=== PATIENT | female | born 1950 | race African-American/Black ===

== ENCOUNTER 2017-07-28 21:20 | Emergency (ER) | payer SELFPAY ==
[2017-07-28] MEDS ORDERED: Bacitracin Zinc 1 Packet ONE ×2 (21:45→21:49)
[2017-07-28] MEDS ORDERED: Ketorolac Tromethamine 30 MG/ML VIAL ONE (21:49)
== END 2017-07-28 22:15 | disposition home or self-care (01) ==
LOC: ERS 21:20
DX: S70.361A Insect bite (nonvenomous), right thigh, initial encounter (principal); S70.261A Insect bite (nonvenomous), right hip, initial encounter; M54.41 Lumbago with sciatica, right side; I10 Essential (primary) hypertension; F32.9 Major depressive disorder, single episode, unspecified; W57.XXXA Bitten or stung by nonvenomous insect and other nonvenomous arthropods, initial encounter
CPT/HCPCS: 96372; J1885

== ENCOUNTER 2018-06-20 21:06 | Emergency (ER) | payer MEDICARE, SELFPAY ==
[~2018-06-20 21:06] MED LIST: ISOVUE-370 76%-LOCM 1 ML ONE
[2018-06-20 21:33] LABS: #Lymphocytes 1.5 thou/uL (1.20-3.40); #Monocytes 0.3 thou/uL (0.11-0.59); #Neutrophils 1.6 thou/uL (1.40-6.50); %Basophils 0.3 % (0.0-1.0); %Eosinophils 1.2 % (0.0-10.0); %Lymphocytes 43.5 % (21.0-51.0); Hemoglobin 12.2 g/dL (12.0-16.0); Mean Corpuscular Hemoglobin 28.8 pg (27.0-31.0); Mean Corpuscular Volume 89.8 fL (78.0-98.0); Mean Platelet Volume 7.7 fL (7.4-10.4); Platelet Count 232 thou/uL (130-400); RBC Distribution Width 11.5 % (11.5-14.5); Red Blood Cell (RBC) Count 4.26 mill/uL (4.20-5.40); White Blood Cell (WBC) Count 3.4 thou/uL (4.8-10.8)
[2018-06-20] MEDS ORDERED: Ondansetron PF 4 MG/2 ML Vial ONE (21:33)
[2018-06-20 21:54] LABS: ALT (SGPT) 34 U/L (8-55); AST (SGOT) 80 U/L (5-34); Albumin 3.8 g/dL (3.4-4.8); Alkaline Phosphatase 77 U/L (40-150); Anion Gap 12 mmol/L (10-20); BUN (Urea Nitrogen) 9 mg/dL (9.8-20.1); Bilirubin, Total 0.4 mg/dL (0.2-1.2); Calc. Creatinine Clearance 0 mL/min (70-130); Calcium 8.8 mg/dL (7.8-10.44); Carbon Dioxide 23 mmol/L (23-31); Chloride 104 mmol/L (98-107); Estimated GFR-MDRD 82; Globulin 3.4 g/dL (2.4-3.5); Glucose 107 mg/dL (80-115); Potassium 3.1 mmol/L (3.5-5.1); Protein, Total 7.2 g/dL (6.0-8.3); Sodium 136 mmol/L (136-145)
--- NOTE | 2018-06-20 21:58 | RAD ---
Frontal radiograph chest: 06/20/2018 comparison 10/19/2014 HISTORY: Trauma, pain FINDINGS: There is mild widening of the superior mediastinum with a slightly ill-defined nature of th e aortic knob. This may be secondary to supine imaging. Follow-up PA and lateral imaging of the chest is advised for further assessment. No lobar consolidation or alveolar edema. Supine imaging miles its assessment for pneumothorax or pleural fluid. IMPRESSION: Mild widening of superior mediastinum with ill-defined nature of the aortic knob for whic h follow-up PA and lateral imaging advised.
[2018-06-20] MEDS ORDERED: Fentanyl 100 MCG/2 ML VIAL ONE (21:59)
--- NOTE | 2018-06-20 22:01 | CT ---
Head CT without contrast 06/20/2018: COMPARISON: 07/16/2016 HISTORY: Injury, trauma, pain TECHNIQUE: Axial CT imaging at 5 mm intervals from vertex through skull base without contrast FINDINGS: The sphenoid sinus on the left is opacified and demonstrates wall thickening, suggesting ch ronic sphenoid sinusitis, similar when compared to the prior exam. The temporal horn of the left lateral ventricle is prominent, a stable finding. No intracranial hemorrhage, midline shift, mass eff ect, or acute osseous abnormality. IMPRESSION: Chronic findings as detailed above, no acute findings seen. Results called to Dr. Fermin at 10:00 PM 06/20/2018
--- NOTE | 2018-06-20 22:08 | CT ---
CT cervical spine: 06/20/2018 COMPARISON: None HISTORY: Injury, trauma, pain TECHNIQUE: Axial CT imaging at 2.5 mm intervals from skull base through lung apices with coronal and sagittal reformatted imaging FINDINGS: Minimal subpleural emphysematous change noted within bilateral lung apices versus miniscule bilateral pneumothoraces. The C1 ring is intact. The occipital condyles, dens, and C1 to articulation appear grossly unremarkable. There is multilevel degenerative change within the cervical spine with multilevel bilateral facet hyp ertrophy as well as multilevel disc space narrowing and degenerative endplate change, most prominent at C7-T1. No discrete acute cervical spine fracture or dislocation noted. There is a first rib fracture noted on the left. IMPRESSION: Probable tiny apical pneumothoraces. First rib fracture on the left. Prominent cervical s pine degenerative change with no acute cervical spine fracture. Results called to Dr. Handley at 10:00 PM 06/20/2018.
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
--- NOTE | 2018-06-20 22:21 | RAD ---
5 views left wrist: 06/20/2018 COMPARISON: None HISTORY: Trauma, pain FINDINGS: There is an obliquely oriented impacted fracture of the distal left radius. There is a comm inuted mildly displaced ulnar styloid fracture. Obliquely oriented radial fracture demonstrates mild comminution with mild impaction, mild volar displacement, and extension into the distal radiouln ar joint. Postreduction imaging advised. IMPRESSION: Fracture deformities of the distal left radius and ulna as detailed above.
[2018-06-20] MEDS ORDERED: Esmolol 2,500 MG/250 ML 250 ML ONE (22:48)
== END 2018-06-20 23:26 | disposition short-term general hospital (02) ==
LOC: ERS 21:06
DX: S25.01XA Minor laceration of thoracic aorta, initial encounter (principal); I10 Essential (primary) hypertension; F32.9 Major depressive disorder, single episode, unspecified; V49.9XXA Car occupant (driver) (passenger) injured in unspecified traffic accident, initial encounter
CPT/HCPCS: 70450; 71045; 71260; 72125; 74177; 80053; 85025; 93005; 96374; 96375; 96376; G0390; J2405; J3010; Q9966

== ENCOUNTER 2018-07-05 17:38 | Observation (INO) | payer MEDICARE, OTHER ==
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
[2018-07-05 18:38] LABS: #Eosinphils 0.1 thou/uL (0.0-0.7); #Lymphocytes 1.3 thou/uL (1.20-3.40); #Monocytes 0.6 thou/uL (0.11-0.59); #Neutrophils 3.1 thou/uL (1.40-6.50); %Basophils 0.3 % (0.0-1.0); %Eosinophils 1.3 % (0.0-10.0); %Lymphocytes 25.4 % (21.0-51.0); %Monocytes 12.6 % (0.0-10.0); %Neutrophils 60.4 % (42.0-75.0); Hemoglobin 10.5 g/dL (12.0-16.0); Mean Corpuscular HGB CONC 31.9 g/dL (32.0-36.0); Mean Corpuscular Hemoglobin 29.4 pg (27.0-31.0); Mean Corpuscular Volume 92.1 fL (78.0-98.0); Mean Platelet Volume 6.7 fL (7.4-10.4); Platelet Count 428 thou/uL (130-400); Red Blood Cell (RBC) Count 3.57 mill/uL (4.20-5.40); White Blood Cell (WBC) Count 5.1 thou/uL (4.8-10.8)
[2018-07-05 19:01] LABS: ALT (SGPT) 23 U/L (8-55); AST (SGOT) 40 U/L (5-34); Albumin 4.3 g/dL (3.4-4.8); Alkaline Phosphatase 92 U/L (40-150); Anion Gap 18 mmol/L (10-20); BUN (Urea Nitrogen) 7 mg/dL (9.8-20.1); Bilirubin, Total 1.1 mg/dL (0.2-1.2); Calc. Creatinine Clearance 0 mL/min (70-130); Calcium 9.8 mg/dL (7.8-10.44); Carbon Dioxide 23 mmol/L (23-31); Chloride 104 mmol/L (98-107); Estimated GFR-MDRD 86; Glucose 103 mg/dL (80-115); Potassium 4.1 mmol/L (3.5-5.1); Protein, Total 8.3 g/dL (6.0-8.3); Sodium 141 mmol/L (136-145)
--- NOTE | 2018-07-05 20:22 | CT ---
CTA CHEST WITH CONTRAST: 07/05/18 Multiple axial tomograms obtained through the chest following a pulmonary angio protocol with multipl michele reconstructions and 3D post processing. INDICATIONS: Hemoptysis. Shortness of breath. Comparison made to CTA chest 10/19/14. FINDINGS: Pulmonary arteries show adequate opacification. No evidence of pulmonary embolus identified. The thor acic aorta shows no evidence of dissection. There is a stent grade seen involving the lower descendin g thoracic aorta. The mediastinum is unremarkable. The lungs show chronic parenchymal change with hyperexpansion. There is no evidence of acute infiltra te. There is a reticulonodular process involving the right upper lobe which was present on the prior exam and findings would indicate chronic parenchymal change. Images through the upper abdomen show mild splenomegaly similar to the prior exam. IMPRESSION: 1. No evidence of pulmonary embolus. 2. There are chronic lung parenchymal changes. No evidence of acute lung process. POS: [facility]
--- NOTE | 2018-07-05 20:28 | CT ---
CT RIGHT KNEE: 07/05/18 Multiple axial tomograms were obtained through the right knee with multiplanar reconstruction. INDICATIONS: Assess for right knee abscess. No osseous abnormality. There is fluid collection seen in the prepatellar bursa. There is a tiny joint effusion seen. There a re degenerative changes seen at the Patellofemoral joint with evidence of mild chondromalacia patella . No other soft tissue abnormality. IMPRESSION: Fluid collection in the prepatellar bursa. Findings could represent a prepatellar bursitis. Abscess is not excluded. POS: [facility]
[2018-07-05] MEDS ORDERED: Lidocaine 1% (PF) 30 ML VIAL ONE (21:22)
[2018-07-05 23:08] LABS: BF Color Red; Body Fluid Source Synovial Fluid; Clarity Cloudy/Turbid (Clear); Tube # 1
[2018-07-05 23:09] LABS: RBC Background Count 0.004
[2018-07-05 23:10] LABS: RBC Count-Automated 258000 /cumm; WBC/NonHematic-Auto 9780 /cumm
[2018-07-05 23:33] LABS: BF Segmented Neutrophils 86 %; Cell Count Non Hematic 12 %; Lymphocytes 2 %
[2018-07-06] MEDS ORDERED: Clindamycin/D5W 600 mg/50 ml Premix Bag ONE (00:52)
[2018-07-06] MEDS ORDERED: Morphine 4 MG/ML VIAL ONE (01:09)
[2018-07-06 02:31] VITALS: BMI 18.8
[2018-07-06] MEDS ORDERED: traMADol HCl 50 MG TAB PO PRN (03:25)
[2018-07-06] MEDS ORDERED: Amlodipine 5 MG TAB PO PRN (03:27)
[2018-07-06] MEDS ORDERED: Prevnar 13-Val Conj/PF 0.5 ML SYRINGE IM ONE (04:00)
[2018-07-06] MEDS: Amlodipine 5 MG TAB PO SCH (09:08)
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
[2018-07-06] MEDS ORDERED: Bisacodyl 5 MG TAB PO PRN (11:40)
--- NOTE | 2018-07-06 13:25 | PDOC.PN ---
- Subjective Encounter Start Date: 07/06/18 Encounter Start Time: 13:23 - Objective Resuscitation Status - Order Detail: 07/06/18 11:40 Resuscitation Status Routine Resuscitation Status: FULL: Full Resuscitation Discussed with: patient Vital Signs & Weight: Vital Signs (12 hours) Temp Pulse Resp BP BP Pulse Ox 07/06/18 11:46 98.7 F 75 16 156/77 H 99 07/06/18 09:08 75 141/71 H 07/06/18 07:57 98.7 F 75 14 141/71 H 97 07/06/18 05:48 98.7 F 75 18 168/77 H 97 07/06/18 02:10 98.4 F 98 18 182/83 H 98 Weight Weight 106 lb 9.6 oz I&O: 07/05/18 07/06/18 07/07/18 06:59 06:59 06:59 Intake Total 240 Balance 240 Result Diagrams: 07/05/18 18:24 07/05/18 18:24 Dx/Plan - Plan * . Review of Systems - Medications/Allergies Allergies/Adverse Reactions: Allergies Allergy/AdvReac Type Severity Reaction Status Date / Time No Known Allergies Allergy Unverified 10/19/14 16:44 Medications: Current Medications Acetaminophen (Tylenol) 650 mg PO Q4H PRN PRN Reason: Headache/Fever/Mild Pain (1-3) Amlodipine Besylate (Norvasc) 5 mg PO DAILY [facility] Last Admin: 07/06/18 09:08 Dose: 5 mg Amlodipine Besylate (Norvasc) 5 mg PO DAILY PRN PRN Reason: SBP GREATER THAN 160 Bisacodyl (Dulcolax) 10 mg PO DAILYPRN PRN PRN Reason: Constipation Enoxaparin Sodium (Lovenox) 40 mg SC 0900 [facility] Metoprolol Succinate (Toprol Xl) 25 mg PO DAILY [facility] Tramadol HCl (Ultram) 50 mg PO Q6H PRN PRN Reason: Moderate Pain (4-6)
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
[2018-07-06 15:11] LABS: Hemoglobin 10.5 g/dL (12.0-16.0)
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
[2018-07-06 21:53] LABS: Hemoglobin 10.5 g/dL (12.0-16.0)
[2018-07-07] MEDS: Acetaminophen 325 MG TAB PO PRN ×2 (00:21→08:14)
[2018-07-07 06:03] LABS: #Basophils 0.1 thou/uL (0.0-0.2); #Eosinphils 0.1 thou/uL (0.0-0.7); #Lymphocytes 1.7 thou/uL (1.20-3.40); #Monocytes 0.6 thou/uL (0.11-0.59); #Neutrophils 2.2 thou/uL (1.40-6.50); %Basophils 1.4 % (0.0-1.0); %Eosinophils 2.5 % (0.0-10.0); %Lymphocytes 36.4 % (21.0-51.0); %Monocytes 13.7 % (0.0-10.0); %Neutrophils 45.9 % (42.0-75.0); Hemoglobin 10.7 g/dL (12.0-16.0); Mean Corpuscular HGB CONC 31.9 g/dL (32.0-36.0); Mean Corpuscular Hemoglobin 29.5 pg (27.0-31.0); Mean Corpuscular Volume 92.4 fL (78.0-98.0); Mean Platelet Volume 7.1 fL (7.4-10.4); Platelet Count 358 thou/uL (130-400); RBC Distribution Width 12.8 % (11.5-14.5); Red Blood Cell (RBC) Count 3.63 mill/uL (4.20-5.40); White Blood Cell (WBC) Count 4.7 thou/uL (4.8-10.8)
[2018-07-07 06:25] LABS: Anion Gap 13 mmol/L (10-20); BUN (Urea Nitrogen) 12 mg/dL (9.8-20.1); Calc. Creatinine Clearance 52 mL/min (70-130); Calcium 9.6 mg/dL (7.8-10.44); Carbon Dioxide 26 mmol/L (23-31); Chloride 103 mmol/L (98-107); Estimated GFR-MDRD 84; Glucose 93 mg/dL (80-115); Potassium 3.9 mmol/L (3.5-5.1); Sodium 138 mmol/L (136-145)
[2018-07-07] MEDS: Amlodipine 5 MG TAB PO SCH (08:15)
[2018-07-07] MEDS ORDERED: Enoxaparin Sodium 40 MG/0.4 ML SYRINGE SC SCH (09:00)
[2018-07-07 11:25] VITALS: BP 146/70; TEMP 98.1
--- NOTE | 2018-07-08 00:12 | DIS ---
DATE OF ADMISSION: 07/06/2018 DATE OF DISCHARGE: 07/07/2018 PRIMARY CARE PROVIDER: Jackeline Kumar MD. DISCHARGE DIAGNOSIS: Right prepatellar bursitis. CONDITION OF PATIENT ON THE DAY OF DISCHARGE: Stable. I assessed Ms. Arceo on the day of discharge. She denies any chest pain or shortness of breath. Vital signs are stable. S1 and S2 are heard, regular. Lungs are clear to auscultation bilaterally. DISCHARGE MEDICATIONS: No change was made to her pre-admission home medications as dictated on my history and physical note dated 07/06/2018. CONSULTATIONS DURING THIS HOSPITALIZATION: Orthopedic Surgery, Dr. Leung. HOSPITAL COURSE: Ms. Arceo is a pleasant 67-year-old lady, who was admitted to [facility] on 07/06/2018, for right knee pain secondary to prepatellar bursitis. She was seen by Orthopedic Surgery Service. She was advised that there was no evidence for septic prepatellar bursitis or septic knee. Orthopedic surgery cleared her for discharge. She was seen by Physical Therapy Service. Arrangements are being made for [facility] for physical therapy prior to discharge. Please note that the patient did not receive any antibiotics following admission. She did receive a dose of clindamycin in the emergency room. At the time of this dictation, knee aspirate and final blood cultures are pending. Preliminary cultures are negative. She is advised to follow up with her primary care provider for final blood culture result and final knee fluid culture result. Many thanks for allowing me to participate in Ms. Arceo's care. Please feel free to contact me with any questions or concerns. DISCHARGE DESTINATION: Home. TOTAL AMOUNT OF TIME SPENT COORDINATING THIS DISCHARGE: 31 minutes. Job ID: [id number]
== END 2018-07-07 13:20 | disposition home or self-care (01) ==
LOC: ERS 17:38 → INTOOBSV 07-06 01:56 → SURG A 07-06 01:56
PROVIDERS: ADMIT Internal Medicine; ATTEND Internal Medicine
DX: M70.51 Other bursitis of knee, right knee (principal); K92.0 Hematemesis; I10 Essential (primary) hypertension; F32.9 Major depressive disorder, single episode, unspecified; I16.0 Hypertensive urgency; R07.9 Chest pain, unspecified; S80.212D Abrasion, left knee, subsequent encounter; S52.502D Unspecified fracture of the lower end of left radius, subsequent encounter for closed fracture with routine healing; S52.612D Displaced fracture of left ulna styloid process, subsequent encounter for closed fracture with routine healing; Z79.82 Long term (current) use of aspirin; Z79.899 Other long term (current) drug therapy; Z95.828 Presence of other vascular implants and grafts; Z98.890 Other specified postprocedural states; V49.60XD Unspecified car occupant injured in collision with unspecified motor vehicles in traffic accident, subsequent encounter
CPT/HCPCS: 20610; 71045; 71275; 73110; 73701; 80048; 80053; 82962; 83605; 85014 ×2; 85018 ×2; 85025 ×2; 85379; 85652; 86140; 87040; 87070; 87205; 89051; 93005; 96365; 96372; 96375; 97116 ×2; 97530; 99285; G0378 ×2; 36415; 36416; 85060; J1650; J2001; J2270; J3490; Q9966

== ENCOUNTER 2018-08-08 11:16 | Outpatient (CLI) | payer MEDICARE ==
--- NOTE | 2018-08-08 12:37 | SJPRAD ---
RIGHT FOOT THREE VIEWS: HISTORY: Acute right foot pain. COMPARISON: None. FINDINGS: Three views of the right foot show no evidence of acute fracture or dislocation. Mild lateral soft t issue swelling is seen. This is in the region of the metatarsophalangeal joint. There is a possible small radiopaque foreign body in the soft tissues in this region. No degenerative changes are seen. IMPRESSION: Possible small radiopaque foreign body in the soft tissues of the right foot. POS: [facility]
--- NOTE | 2018-08-08 12:38 | SJPRAD ---
RIGHT KNEE TWO VIEWS: HISTORY: Pain in the right knee. Suspected osteomyelitis. COMPARISON: None. FINDINGS: Three views of the right knee show no evidence of acute fracture or dislocation. No knee effusion is seen. No degenerative changes are seen. No osseous erosions are present. Mild prepatellar soft ti ssue swelling is seen. IMPRESSION: No evidence of acute osseous abnormality. POS: [facility]
--- NOTE | 2018-08-08 12:39 | SJPRAD ---
RIGHT WRIST 3 VIEWS: HISTORY: Post reduction. FINDINGS: Distal, radial, and ulnar styloid fractures have been reduced and overall appear to be in satisfactor y position. Overlying cast material noted. IMPRESSION: Reduction in distal radial fracture. POS: [facility]
== END 2018-08-08 11:17 | disposition home or self-care (01) ==
LOC: MWLC RAD 11:16
PROVIDERS: ATTEND Family Medicine
DX: M79.671 Pain in right foot (principal); M25.561 Pain in right knee; S62.102A Fracture of unspecified carpal bone, left wrist, initial encounter for closed fracture; S52.502D Unspecified fracture of the lower end of left radius, subsequent encounter for closed fracture with routine healing; Z98.890 Other specified postprocedural states

== ENCOUNTER 2019-04-10 09:04 | Emergency (ER) | payer MEDICARE, MEDICAID ==
[2019-04-10 10:33] LABS: Hemoglobin 13.6 g/dL (12.0-16.0); Mean Corpuscular HGB CONC 32.4 g/dL (32.0-36.0); Mean Corpuscular Hemoglobin 29.1 pg (27.0-31.0); Mean Corpuscular Volume 90.1 fL (78.0-98.0); Mean Platelet Volume 8.8 fL (7.4-10.4); Platelet Count 179 thou/uL (130-400); RBC Distribution Width 11.5 % (11.5-14.5); Red Blood Cell (RBC) Count 4.66 mill/uL (4.20-5.40)
[2019-04-10 10:43] LABS: ALT (SGPT) 30 U/L (8-55); AST (SGOT) 31 U/L (5-34); Albumin 3.9 g/dL (3.4-4.8); Alkaline Phosphatase 85 U/L (40-110); Anion Gap 9 mmol/L (10-20); BUN (Urea Nitrogen) 17 mg/dL (9.8-20.1); Bilirubin, Total 0.4 mg/dL (0.2-1.2); Calc. Creatinine Clearance 0 mL/min (70-130); Carbon Dioxide 30 mmol/L (23-31); Chloride 106 mmol/L (98-107); Estimated GFR-MDRD 84; Globulin 3.6 g/dL (2.4-3.5); Glucose 93 mg/dL (80-115); Potassium 3.8 mmol/L (3.5-5.1); Protein, Total 7.5 g/dL (6.0-8.3); Sodium 141 mmol/L (136-145)
[2019-04-10 10:56] LABS: Band 6 % (5-11); Eosinophils 1 % (0-10); Lymphocytes 40 % (21-51); MDiff Complete? YES; Metamyelocyte 1 % (0-0); Monocytes 7 % (0-10); Neutrophil 36 % (42-75); Reactive Lymphocytes 9 % (0-10)
== END 2019-04-10 11:26 | disposition home or self-care (01) ==
LOC: ERS 09:04
DX: I10 Essential (primary) hypertension (principal); F32.9 Major depressive disorder, single episode, unspecified; Z79.899 Other long term (current) drug therapy
CPT/HCPCS: 80053; 82550; 84484; 85025

== ENCOUNTER 2019-08-26 08:38 | Emergency (ER) | payer MEDICARE, MEDICAID | END 2019-08-26 09:06 | disposition home or self-care (01) | LOC: ERS 08:38 | DX: A64 Unspecified sexually transmitted disease (principal); I10 Essential (primary) hypertension; F32.9 Major depressive disorder, single episode, unspecified | CPT/HCPCS: 99283 ==

== ENCOUNTER 2019-10-23 08:07 | Outpatient (CLI) | payer MEDICARE, MEDICAID ==
--- NOTE | 2019-10-23 09:16 | ULT ---
ULTRASOUND GALLBLADDER RIGHT UPPER QUADRANT: Date: 10/23/2019 HISTORY: Viral hepatitis C. COMPARISON: None. FINDINGS: Real-time Garner scale and color evaluation of the right upper quadrant of the abdomen was performed. V isualized portions of the aorta, IVC, and pancreas are unremarkable. Mildly coarsened hepatic echotex ture without mass. Gallbladder wall thickness is normal. No pericholecystic fluid. Common bile duct i s normal, measuring less than 5.0 mm. Main portal vein is patent with antegrade flow. Right kidney measures 10.6 x 5.8 x 2.9 cm without mass, hydronephrosis, or abnormal calcifications. IMPRESSION: 1. Slight coarsened hepatic echotexture suggesting chronic hepatocellular disease. No mass. 2. No cholelithiasis or cholecystitis. POS: [facility]
== END 2019-10-23 08:08 | disposition home or self-care (01) ==
LOC: BICULT 08:07
PROVIDERS: ATTEND Internal Medicine Infectious Disease
DX: B18.2 Chronic viral hepatitis C (principal); R93.2 Abnormal findings on diagnostic imaging of liver and biliary tract
CPT/HCPCS: 76705